=== PATIENT | female | born 1985 | race Caucasian/White ===

== ENCOUNTER 2018-09-13 12:28 | Day surgery (SDC) | payer OTHER ==
[2018-09-13] MEDS ORDERED: Sodium Chloride 0.9% 1,000 ML IV ONE (13:14)
--- NOTE | 2018-09-13 13:50 | C.PDOC ---
History Of Present Illness 32 y/o female, 8 weeks , presents to the ER for evaluation of nausea and abdominal pain. Patient states that she was evaluated by her FERMENTER HELPER and she had an US. Patient reports that referred her to the ER to rule out ectopic . Patient denies having fever,chills, headache,dizziness, CP,SOB, vomiting, and vaginal bleeding. Chief Complaint (Nursing): Female Genitourinary History Per: Patient History/Exam Limitations: no limitations Onset/Duration Of Symptoms: Days Current Symptoms Are (Timing): Still Present Severity: Moderate Past Medical History Reviewed: Historical Data, Nursing Documentation, Vital Signs Vital Signs: Last Vital Signs Temp 99.3 F 09/13/18 12:47 Pulse 87 09/13/18 12:47 Resp 20 09/13/18 12:47 BP 106/69 09/13/18 12:47 Pulse Ox 100 09/13/18 12:47 Primary Care Provider: FAMILY PROVIDER,NO - Medical History PMH: No Chronic Diseases Surgical History: No Surg Hx Family History: States: No Known Family Hx - Social History Hx Alcohol Use: No Hx Substance Use: No - Immunization History Hx Tetanus Toxoid Vaccination: No Hx Influenza Vaccination: No Hx Pneumococcal Vaccination: No Review Of Systems Except As Marked, All Systems Reviewed And Found Negative. Constitutional: Negative for: Fever, Chills Gastrointestinal: Positive for: Nausea, Abdominal Pain. Negative for: Vomiting Physical Exam - Physical Exam Appears: Non-toxic, No Acute Distress Skin: Normal Color, Warm, Dry Head: Atraumatic, Normacephalic Eye(s): bilateral: Normal Inspection Oral Mucosa: Moist Neck: Supple Chest: Symmetrical Cardiovascular: Rhythm Regular Respiratory: Normal Breath Sounds, No Rales, No Rhonchi, No Wheezing Gastrointestinal/Abdominal: Soft, Tenderness (RLQ and suprapubic tenderness), No Guarding, No Rebound Neurological/Psych: Oriented x3, Normal Speech ED Course And Treatment - Laboratory Results Result Diagrams: 09/13/18 14:07 09/13/18 14:07 O2 Sat by Pulse Oximetry: 100 (RA) Pulse Ox Interpretation: Normal - CT Scan/US US-OB Other Rad Studies (CT/US): Read By Radiologist, Radiology Report Reviewed CT/US Interpretation: Date of service: 09/13/2018. PROCEDURE: First trimester ultrasound. HISTORY: abdominal pain. COMPARISON: None. TECHNIQUE: Standard protocol for this study/examination. FINDINGS: LMP: 07/27/2018. Prior examinations from the current : None. TECHNIQUE: Real-time 2D imaging, duplex and color Doppler. FINDINGS: ECTOPIC GESTATION RIGHT ADNEXA: Cardiac activity: Present. Rate: 120 BPM. Measurements: [place] rump length: 0.53 cm. Gestational age based on CRL 5 WEEKS 5 DAYS. Gestational age 5 WEEKS 1 DAY based on gestational sac measurement 1.10 cm. Gestational age derived from LMP: 6 weeks 6 days. ROBBIE based on LMP: 05/03/2019. ROBBIE based on biometry: 05/11/2019. Gestational concordance noted. Yolk sac identified. Cervix: No Cervical abnormalities: Negative examination for cervical dilatation or effacement. Closed cervix measuring 2.98 cm. No visible intrauterine ges tation. Endometrial thickness 13.4 mm. UTERUS: 4.9 x 5.4 x 9.0 cm. ADNEXA: Right: 2.1 x 2.3 x 3.2 cm. Ectopic gestation, measurements and biometry provided above. Normal Doppler arterial waveform documented. Left: 2.5 x 4.1 x 3.7 cm. Corpus luteum cyst 1.9 x 1.5 x 2 cm. Normal Doppler arterial waveform documented. Fluid in the cul-de-sac: None. IMPRESSION: Right adnexal ectopic gestation (live). No visible intrauterine gestation. Communication of results: Study completed at 14:45. I discussed the findings with the attending in the emergency department Dr. Russo at 15:29. Medical Decision Making Medical Decision Making: Plan: --Labs --US-Transvag --IV Fluids Case d/w Dr. Escalante who states she will take patient to the OR. Disposition Counseled Patient/Family Regarding: Studies Performed, Diagnosis - Disposition Disposition: HOSPITALIZED Disposition Time: 14:55 Condition: STABLE - Clinical Impression Clinical Impression: Ectopic - Scribe Statement The provider has reviewed the documentation as recorded by the Penny Osorio Provider Attestation: All medical record entries made by the Scribe were at my direction and personally dictated by me. I have reviewed the chart and agree that the record accurately reflects my personal performance of the history, physical exam, medic al decision making, and the department course for this patient. I have also personally directed, reviewed, and agree with the discharge instructions and disposition.
[2018-09-13] MEDS ORDERED: Sodium Chloride 0.9% 1,000 ML ONE (14:20)
[2018-09-13 14:21] LABS: BASO % 0.4 % (0.0-2.0); EOS % 0.3 % (0.0-4.0); HEMOGLOBIN 12.3 g/dL (11.0-16.0); LYMPH # 1.9 K/uL (1.0-4.3); LYMPH % 20.2 % (20.0-40.0); MEAN CELL VOLUME 85.7 fL (81.0-99.0); MEAN CORPUSCULAR HEMOGLOBIN 30.1 pg (27.0-31.0); MEAN CORPUSCULAR HGB CONC 35.1 g/dL (33.0-37.0); MEAN PLATELET VOLUME 9.9 fL (7.2-11.7); MONO # 0.8 K/uL (0.0-0.8); NEUT # 6.9 K/uL (1.8-7.0); NEUT % 71.1 % (50.0-75.0); NRBC % 0.1 % (0.0-2.0); RBC 4.1 Mil/uL (3.80-5.20); RED CELL DISTRIBUTION WIDTH 13.8 % (11.5-14.5); WHITE BLOOD COUNT 9.6 K/uL (4.8-10.8)
[2018-09-13 14:27] LABS: INR 1.1; PARTIAL THROMBOPLASTIN TIME 31.8 SECONDS (21-34); PROTHROMBIN TIME 11.9 SECONDS (9.7-12.2)
[2018-09-13 14:52] LABS: ALB/GLOB RATIO 1.3 (1.0-2.1); ALBUMIN 4.5 g/dL (3.5-5.0); ALT/SGPT 22 U/L (9-52); AST/SGOT 26 U/L (14-36); BLOOD UREA NITROGEN 5 mg/dL (7-17); CALCIUM 9.3 mg/dl (8.6-10.4); GFR NON-AFRICAN AMERICAN > 60
[2018-09-13] MEDS ORDERED: ceFOXitin IV 1 gm/100 ml in NS 2 GM/200 ML BAG ONE (15:11)
--- NOTE | 2018-09-13 15:18 | CP.PCM.HP ---
History of Present Illness - History of Present Illness History of Present Illness: PGY1 OBGYN History and Physical Exam Note for Dr. Meneses Patient is a 32-year-old F at 8 weeks GA with no significant past medical history who presents to ED from OB clinic for right-sided lower quadrant pain. Patient reports that she has been experiencing pain for a few days. Today, Patient states that she went into OB clinic for a check and sent to the ED to be evaluated for possible ectopic . Patient states that she is about 8 weeks GA. Patient admits to increased urinary frequency, but otherwise denies vaginal bleeding, nausea, vomiting, leakage of fluid, history of STI, fever, chills, chest pain, shortness of breath, and/or rash. LMP: 07/27 GA: 8 weeks; per Patient ROBBIE: 05/04/2019 by LMP PMH: Patient denies PSH: Patient denies Allergies: Patient denies Medications: vitamin daily Family history: Mother: HTN, HLD (alive, 59yo) Father: no medical problems (alive 59yo) Present on Admission - Present on Admission Any Indicators Present on Admission: No History of DVT/PE: No History of Uncontrolled Diabetes: No Urinary Catheter: No Decubitus Ulcer Present: No Review of Systems - Review of Systems All systems: reviewed and no additional remarkable complaints except (as per HPI) Past Patient History - Past Social History Smoking Status: Never Smoked - PSYCHIATRIC Hx Substance Use: No Meds Allergies/Adverse Reactions: Allergies Allergy/AdvReac Type Severity Reaction Status Date / Time No Known Allergies Allergy Verified 09/13/18 12:58 Physical Exam - Constitutional Appears: Non-toxic, No Acute Distress - Head Exam Head Exam: ATRAUMATIC, NORMAL INSPECTION, NORMOCEPHALIC - Eye Exam Eye Exam: EOMI, Normal appearance Pupil Exam: NORMAL ACCOMODATION - ENT Exam ENT Exam: Mucous Membranes Moist, Normal Exam - Neck Exam Neck exam: Positive for: Normal Inspection - Respiratory Exam Respiratory Exam: Clear to Auscultation Bilateral, NORMAL BREATHING PATTERN. ab sent: Rhonchi, Wheezes, Respiratory Distress, Stridor - Cardiovascular Exam Cardiovascular Exam: REGULAR RHYTHM, +S1, +S2. absent: Systolic Murmur - GI/Abdominal Exam GI & Abdominal Exam: Normal Bowel Sounds, Soft, Tenderness (RLQ). absent: Rebound, Rigid - Extremities Exam Extremities exam: Positive for: full ROM, normal inspection. Negative for: calf tenderness - Back Exam Back exam: NORMAL INSPECTION - Neurological Exam Neurological exam: CN II-XII Intact, Oriented x3, Reflexes Normal - Psychiatric Exam Psychiatric exam: Normal Affect, Normal Mood - Skin Skin Exam: Normal Color, Warm Results - Vital Signs Recent Vital Signs: Last Vital Signs Temp 99.3 F 09/13/18 12:47 Pulse 87 09/13/18 12:47 Resp 20 09/13/18 12:47 BP 106/69 09/13/18 12:47 Pulse Ox 100 09/13/18 14:37 - Labs Result Diagrams: 09/13/18 14:07 09/13/18 14:07 Labs: Laboratory Results - last 24 hr 09/13/18 09/13/18 09/13/18 14:07 14:07 14:07 WBC 9.6 RBC 4.10 Hgb 12.3 Hct 35.2 MCV 85.7 MCH 30.1 MCHC 35.1 RDW 13.8 Plt Count 248 MPV 9.9 Neut % (Auto) 71.1 Lymph % (Auto) 20.2 [place] % (Auto) 8.0 Eos % (Auto) 0.3 Baso % (Auto) 0.4 Neut # (Auto) 6.9 Lymph # (Auto) 1.9 [place] # (Auto) 0.8 Eos # (Auto) 0.0 Baso # (Auto) 0.0 PT 11.9 INR 1.1 APTT 31.8 Sodium 135 Potassium 3.9 Chloride 100 Carbon Dioxide 24 Anion Gap 15 BUN 5 L Creatinine 0.5 L Est GFR ( Amer) > 60 Est GFR (Non-Af Amer) > 60 Random Glucose 82 Calcium 9.3 Total Bilirubin 0.6 AST 26 ALT 22 Alkaline Phosphatase 60 Total Protein 7.8 Albumin 4.5 Globulin 3.3 Albumin/Globulin Ratio 1.3 Beta HCG, Quant 69955.00 Assessment & Plan - Assessment and Plan (Free Text) Assessment: Patient is a 32-year-old F at 8 weeks GA with no significant past medical history who presents to ED from OB clinic for right-sided lower quadrant pain for the last few days. Patient was seen in OB clinic today and was sent to ED for evaluation of possible ectopic . 1. Possible ectopic ; Rule-out rupture - Admit to OB - OB ultrasound - pending official report - WBC reveals no leukocytosis - Type and cross - Type and screen - OR today with Dr. Meneses for laparoscopic ectopic surgery - Possible ex-lap - NPO - IVF - Further recommendations per Dr. Meneses Discussed with Dr. Zaira Victoria PGY1
--- NOTE | 2018-09-13 15:38 | US ---
Date of service: 09/13/2018 PROCEDURE: First trimester ultrasound HISTORY: abdominal pain COMPARISON: None TECHNIQUE: Standard protocol for this study/examination. FINDINGS: LMP: 07/27/2018. Prior examinations from the current : None TECHNIQUE: Real-time 2D imaging, duplex and color Doppler. FINDINGS: ECTOPIC GESTATION RIGHT ADNEXA: Cardiac activity: Present Rate: 120 BPM Measurements: [place] rump length: 0.53 cm Gestational age based on CRL 5 WEEKS 5 DAYS Gestational age 5 WEEKS 1 DAY based on gestational sac measurement 1.10 cm Gestational age derived from LMP: 6 weeks 6 days ROBBIE based on LMP: 05/03/2019 ROBBIE based on biometry: 05/11/2019 Gestational concordance noted Yolk sac identified Cervix: No Cervical abnormalities: Negative examination for cervical dilatation or effacement. Closed cervix measuring 2.98 cm No visible intrauterine gestation. Endometrial thickness 13.4 mm. UTERUS: 4.9 x 5.4 x 9.0 cm. ADNEXA: Right: 2.1 x 2.3 x 3.2 cm. Ectopic gestation, measurements and biometry provided above. Normal Doppler arterial waveform documented. Left: 2.5 x 4.1 x 3.7 cm. Corpus luteum cyst 1.9 x 1.5 x 2 cm. Normal Doppler arterial waveform documented Fluid in the cul-de-sac: None IMPRESSION: Right adnexal ectopic gestation (live). No visible intrauterine gestation. Communication of results: Study completed at 14:45. I discussed the findings with the attending in the emergency department Dr. Russo at 15:29.
[2018-09-13] MEDS ORDERED: Propofol 10 mg/ml Inj (20 ML) ONE (16:31)
[2018-09-13] MEDS ORDERED: Midazolam 2 MG/2 ML VIAL ONE (16:31)
[2018-09-13] MEDS ORDERED: Succinylcholine Chloride 20 mg/ml Syr (5 ml) IV ONE (16:32)
[2018-09-13] MEDS ORDERED: Rocuronium 10 mg/ml (5 ml) ONE (16:40)
[2018-09-13] MEDS ORDERED: Esmolol 100 mg/10ml Inj IV ONE (16:45)
[2018-09-13] MEDS ORDERED: Bupivacaine HCl 0.5% PF (10 ml) Inj ONE (16:51)
[2018-09-13] MEDS ORDERED: Neostigmine 1:1000 (1 mg/ml) Inj ONE (17:06)
[2018-09-13] MEDS ORDERED: HYDROmorphone 0.5 mg/0.5 ml ISec IVP PRN (17:34)
[2018-09-13 20:00] VITALS: BP 100/61; PULSE 99; RESP 13; TEMP 97.5
--- NOTE | 2018-09-17 07:45 | OP ---
PROCEDURE DATE: 09/13/2018 PREOPERATIVE DIAGNOSIS: A 32-year-old 1, para 0 with right ectopic . POSTOPERATIVE DIAGNOSIS: A 32-year-old 1, para 0 with right ectopic . PROCEDURE PERFORMED: Laparoscopic right ectopic removal. SURGEON: Edmundo Meneses MD ACETYLENE TORCH BURNER: Alex Gibbons MD ANESTHESIA: General anesthesia. ANESTHESIOLOGIST: Alexis Soto MD COMPLICATIONS: None. ESTIMATED BLOOD LOSS: 20 mL. DESCRIPTION OF PROCEDURE: After informed consent was obtained, the patient was brought to the operating room and placed on the table where general anesthesia was given. Once the anesthesia was given, the patient was prepped and draped in a normal sterile fashion. Examination under anesthesia revealed the uterus to be 6-week size. No pelvic or adnexal masses. After that, a Gipson catheter was then inserted in a sterile condition. After that, HUMI catheter was inserted after cervical dilatation. Then, attention was turned towards the patient's abdomen at the umbilicus. Marcaine was given at the lower segment of the umbilicus. After that, a small incision was made with the knife. Then, the Optiview was placed. Intraabdominal placement was confirmed with the carbon dioxide gas insufflation. When we looked up, it was found the ectopic on the right side in cue. The decision was two 5-mm port, front end of port on the left side was placed and then after that, 5 mm port on the right side was placed as support, on the right placed the port with the bag. After that, LigaSure used. It was taken and the ectopic was cut and cauterized and it was removed intact and then grasper was put on the right side and it was put in the bag on the right side and was removed along with the port. After that, it was looked up again. It was hemostatic on the left tube and the left side was normal and the site was looked up again and was hemostatic. No bleeding. After that, all the ports were removed, all the gas was removed. The port on the umbilicus was visualized and it was hemostatic. No bleeding. A lot of irrigation was done. It was hemostatic. No bleeding after that. The Gipson catheter was then inserted and Steri-Strips were placed and skin incision with the 2-0 Monocryl straight needle. The patient tolerated the procedure well. Lap, sponge, and instrument counts were correct x2. Edmundo Meneses MD
[2018-09-19 01:20] VITALS: O2SAT 100
== END 2018-09-13 21:30 | disposition home or self-care (01) ==
LOC: C.ER 12:28 → C.SDS 14:52
PROVIDERS: ATTEND Obstetrics & Gynecology
DX: O00.90 Unspecified ectopic pregnancy without intrauterine pregnancy (principal); Z3A.08 8 weeks gestation of pregnancy; Z82.49 Family history of ischemic heart disease and other diseases of the circulatory system; O36.0910 Maternal care for other rhesus isoimmunization, first trimester, not applicable or unspecified
CPT/HCPCS: 59121; 76805; 76817; 80053; 84702; 85025; 85610; 85730; 86850; 86900; 99285; J1100; J1170; J2001; J2250; J2405; J2704; J2710; J2765; J2792; J3010; J7030